=== PATIENT | female | born 1965 | race African-American/Black ===

== ENCOUNTER 2021-07-08 06:50 | Emergency (ER) | payer OTHER ==
[2021-07-08 07:43] LABS: BILIRUBIN NEGATIVE (NEGATIVE); BLOOD NEGATIVE Ery/uL (NEGATIVE); CLARITY CLEAR (CLEAR); COLOR YELLOW (YELLOW); GLUCOSE (U) NORMAL (NORMAL); LEUKOCYTES NEGATIVE Leu/uL (NEGATIVE); NITRITE NEGATIVE (NEGATIVE); PROTEIN NEGATIVE (NEGATIVE); UROBILINOGEN 0.2 mg/dL (0.2-1.0)
[2021-07-08] MEDS ORDERED: NAPROXEN500 MG PO (08:44)
[2021-07-08] MEDS ORDERED: MEDROL 4MG DOSEP4 MG PO (08:44)
[2021-07-08] MEDS ORDERED: HYDROCODON-ACE1 EAC2 PO (08:44)
== END 2021-07-08 09:12 | disposition home or self-care (01) ==
LOC: FER 06:50
PROVIDERS: Internal Medicine
DX: M51.26 Other intervertebral disc displacement, lumbar region (principal); M48.061 Spinal stenosis, lumbar region without neurogenic claudication; I10 Essential (primary) hypertension; Z88.8 Allergy status to other drugs, medicaments and biological substances; Z91.041 Radiographic dye allergy status; Z79.899 Other long term (current) drug therapy
CPT/HCPCS: 72131; 81003; J2930